=== PATIENT | female | born 1990 | race Caucasian/White ===

== ENCOUNTER 2018-02-20 21:51 | Inpatient (IN) | payer OTHER ==
[2018-02-20] MEDS ORDERED: ePHEDrine 50 MG/ML SDV ONE (22:00)
[2018-02-20] MEDS ORDERED: Bupivacaine 0.25% 10 ML SDV ONE (22:00)
[2018-02-20] MEDS ORDERED: Sodium Chloride 0.9% 10 ML Syringe FLUSH PRN (22:13)
[2018-02-20] MEDS ORDERED: Nalbuphine 20 MG/ML 1 ML Syringe IVPUSH PRN (22:13)
[2018-02-20] MEDS ORDERED: ePHEDrine 50 MG/ML SDV IVPUSH PRN (22:15)
[2018-02-20] MEDS ORDERED: Ondansetron 4 MG/2 ML SDV IVPUSH PRN (22:15)
[2018-02-20] MEDS ORDERED: fentaNYL 100 MCG/2 ML SDV EPIDUR PRN (22:15)
[2018-02-20] MEDS ORDERED: Bupivacaine/fentaNYL/NS 100 ML Bag EPIDUR SCH (22:15)
[2018-02-20] MEDS ORDERED: diphenhydrAMINE 50 MG/ML SDV IVPUSH PRN (22:15)
--- NOTE | 2018-02-20 22:38 | PCM.HP ---
<Laura Carrera L - Last Filed: 02/20/18 22:13> H&P History of Present Illness - General Date of Service: 02/20/18 Admit Problem/Dx: Labor onset Source of Information: Patient, Old Records History Limitations: Reports: No Limitations - History of Present Illness Initial Comments - Free Text/Narative: Jayda is a 27 YO white female who presented today with CC of spontaneous labor onset at 39-5/7 wks gestation. CHRIS by U/S on 09/14/2017 at 13-6 wks gestation. On exam, patient is 4-5 cm dilated, 80% effaced. GBS positive. Blood type O POS. Rubella immune, Tdap given 12/14/17. GC/Chlamydia /RPR/HIB/HBsAg negative. GDM screen normal. 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 Otherwise non-contributory. Onset of Symptoms: Reports: Today, Sudden - Related Data Allergies/Adverse Reactions: Allergies Allergy/AdvReac Type Severity Reaction Status Date / Time No Known Allergies Allergy Verified 09/04/15 10:39 CDT Past Medical History Genitourinary History: Reports: UTI, Recurrent : 2 Para: 1 LMP (Approximate): Psychiatric History: Reports: Depression () Oncologic (Cancer) History: Reports: Other (See Below) (bilateral lumpectomies, benign) H&P Review of Systems - Review of Systems: Review Of Systems: See Below General: Reports: No Symptoms HEENT: Reports: No Symptoms Pulmonary: Reports: No Symptoms Cardiovascular: Reports: No Symptoms Gastrointestinal: Reports: No Symptoms Genitourinary: Reports: No Symptoms Musculoskeletal: Reports: No Symptoms Skin: Reports: No Symptoms Psychiatric: Reports: No Symptoms Neurological: Reports: No Symptoms Hematologic/Lymphatic: Reports: No Symptoms Immunologic: Reports: No Symptoms Exam - Exam Exam: See Below - Vital Signs Weight: 153 lb 1 oz - Exam General: Alert, Oriented, 4 HEENT: Hearing Intact, Mucosa Moist & [place], Pupils Equal Lungs: Clear to Auscultation, Normal Respiratory Effort Cardiovascular: Regular Rate, Regular Rhythm (Female) Exam: Normal External Exam, Normal Bimanual Exam Extremities: Normal Inspection, Normal Range of Motion, Non-Tender, No Pedal Edema, Normal Capillary Refill Skin: Warm, Dry, Intact Neuro Extensive - Mental Status: Alert, Oriented x3, Normal Mood/Affect, Normal Cognition Psychiatric: Alert, Normal Affect, Normal Mood - Problem List (1) 39 weeks gestation of SNOMED Code(s): 33645164 ICD Code: Z3A.39 - 39 WEEKS GESTATION OF Status: Acute Current Visit: Yes (2) GBS carrier SNOMED Code(s): 6870429276125 ICD Code: Z22.330 - CARRIER OF GROUP B STREPTOCOCCUS Status: Acute Current Visit: Yes Problem List Initiated/Reviewed/Updated: Yes Orders Last 24hrs: ASSESSMENT Patient appears to be progressing normally, with good cervical dilation. Giving prophylactic antibiotics for GBS carrier status, using vancomycin d/t extensive allergies. PLAN 1. Continue to monitor labor 2. Patient wishes for epidural for pain management 3. Give Vancomycin IV 4. Plan for <Alban Hensley - Last Filed: 02/21/18 03:05> H&P History of Present Illness - General Admit Problem/Dx: Admission Diagnosis/Problem Admission Diagnosis/Problem Normal labor - History of Present Illness Symptom Onset Date: 02/20/18 Symptom Onset Time: 15:00 Duration of Symptoms: Reports: Hour(s): Location: Reports: Abdomen, Back Improves with: Reports: None Worsens with: Reports: None Associated Symptoms: Reports: No Other Symptoms Exam - Vital Signs Vital Signs: Last Vital Signs Temp 98.6 F 02/20/18 23:20 Pulse 87 02/20/18 23:20 Resp 20 02/20/18 23:20 BP 108/59 L 02/20/18 23:20 Pulse Ox 98 02/20/18 23:20 - Patient Data Lab Results Last 24 hrs: Laboratory Results - last 24 hr 02/20/18 02/20/18 Range/Units 22:15 22:15 WBC 8.22 (3.98-10.04) K/mm3 RBC 4.26 (3.98-5.22) M/mm3 Hgb 12.4 (11.2-15.7) gm/L Hct 37.8 (34.1-44.9) % MCV 88.7 (79.4-94.8) fl MCH 29.1 (25.6-32.2) pg MCHC 32.8 (32.2-35.5) g/dl RDW Std Deviation 43.3 (36.4-46.3) fL Plt Count 177 L (182-369) K/mm3 MPV 10.4 (9.4-12.3) fl Blood Type O POSITIVE Gel Antibody Screen Negative Result Diagrams: 02/20/18 22:15 - Problem List (1) 39 weeks gestation of SNOMED Code(s): 54650840 ICD Code: Z3A.39 - 39 WEEKS GESTATION OF Status: Acute Current Visit: Yes (2) GBS carrier SNOMED Code(s): 3023649603945 ICD Code: Z22.330 - CARRIER OF GROUP B STREPTOCOCCUS Status: Acute Current Visit: Yes Problem List Initiated/Reviewed/Updated: No Orders Last 24hrs: Active Orders 24 hr Category Date Time Status Patient Status [ADT] Routine ADT 02/20/18 22:19 Active Activity as Tolerated [RC] PFP Care 02/20/18 22:19 Active Communication Order [RC] ASDIRECTED Care 02/20/18 22:19 Active Notify Provider [RC] PFP Care 02/20/18 22:19 Active Notify Provider [RC] PRN Care 02/20/18 22:19 Active Peripheral IV Care [RC] . DIRECTED Care 02/20/18 22:19 Active Vital Signs [RC] PER UNIT ROUTINE Care 02/20/18 22:19 Active RAPID PLASMA REAGIN,RPR [CHEM] Routine Lab 02/20/18 22:15 Received Bupivacaine/fentaNYL/NS [fentaNYL/Bupivacaine/NS 2 MCG- Med 02/20/18 22:15 Active 0.125% 100 ML] 100 ml EPIDUR ASDIRECTED Lactated Ringers [Ringers, Lactated] 1,000 ml Med 02/20/18 22:15 Active IV ASDIRECTED Nalbuphine [Nubain] Med 02/20/18 22:13 Active 10 mg IVPUSH Q2H PRN Ondansetron [Zofran] Med 02/20/18 22:15 Active 4 mg IVPUSH ONETIME PRN Oxytocin/Lactated Ringers [Pitocin in LR 20 Units/1,000 Med 02/21/18 01:45 Active ML] 20 unit in 1,000 ml IV ONETIME Sodium Chloride 0.9% [Saline Flush] Med 02/20/18 22:13 Active 10 ml FLUSH ASDIRECTED PRN Vancomycin [Vancocin] 1 gm Med 02/20/18 22:30 Active Sodium Chloride 0.9% [Normal Saline] 250 ml IV Q12H diphenhydrAMINE [Benadryl] Med 02/20/18 22:15 Active 25 mg IVPUSH Q6H PRN ePHEDrine [ePHEDrine Sulfate] Med 02/20/18 22:15 Active 5 mg IVPUSH ASDIRECTED PRN fentaNYL [Sublimaze] Med 02/20/18 22:15 Active 100 mcg EPIDUR Q3H PRN Electronic Heart Tones Ext w TOCO [WOMSER] Oth 02/20/18 22:19 Ordered Routine Electronic Heart Tones Internal [WOMSER] Per Unit Oth 02/20/18 22:19 Ordered Routine Peripheral IV Insertion Adult [OM.PC] Routine Oth 02/20/18 22:19 Ordered Resuscitation Status Routine Resus Stat 02/20/18 22:13 Ordered Medication Orders Diphenhydramine HCl (Benadryl) 25 mg IVPUSH Q6H PRN PRN Reason: Pruritis Ephedrine Sulfate (Ephedrine Sulfate) 5 mg IVPUSH ASDIRECTED PRN PRN Reason: Hypotension Fentanyl (Sublimaze) 100 mcg EPIDUR Q3H PRN PRN Reason: Pain Last Admin: 02/20/18 23:07 Dose: 100 mcg Fentanyl/Bupivacaine HCl (Fentanyl/Bupivacaine/Ns 2 Mcg-0.125% 100 Ml) 100 ml EPIDUR ASDIRECTED [facility] Last Admin: 02/20/18 23:07 Dose: 100 ml Lactated Ringer's (Ringers, Lactated) 1,000 mls @ 100 mls/hr IV ASDIRECTED [facility] Last Admin: 02/20/18 23:26 Dose: 100 mls/hr Infusion: 02/20/18 23:26 Dose: 999 mls/hr Admin: 02/20/18 23:24 Dose: 999 mls/hr Vancomycin HCl 1 gm/ Sodium (Chloride) 250 mls @ 250 mls/hr IV Q12H [facility] Last Admin: 02/20/18 22:50 Dose: 250 mls/hr Oxytocin/Lactated Ringer's (Pitocin In Lr 20 Units/1,000 Ml) 20 unit in 1,000 mls @ 500 mls/hr IV ONETIME ONE Stop: 02/21/18 03:44 Nalbuphine HCl (Nubain) 10 mg IVPUSH Q2H PRN PRN Reason: pain Ondansetron HCl (Zofran) 4 mg IVPUSH ONETIME PRN PRN Reason: Nausea/Vomiting Sodium Chloride (Saline Flush) 10 ml FLUSH ASDIRECTED PRN PRN Reason: Keep Vein Open Assessment/Plan Comment:: Plan delivery Patient seen, examined by me and discussed the student.
--- NOTE | 2018-02-20 23:20 | PCM.PREANE ---
Preanesthetic Assessment - Procedure Proposed Procedure: AMIRA - Anesthesia/Transfusion/Family Hx Anesthesia History: Prior Anesthesia Without Reaction Family History of Anesthesia Reaction: No Transfusion History: No Prior Transfusion(s) - Review of Systems General: No Symptoms Pulmonary: No Symptoms Cardiovascular: No Symptoms Gastrointestinal: Other (GERD with ) Neurological: No Symptoms Other: Reports: None - Physical Assessment NPO Status Date: 02/20/18 NPO Status Time: 17:00 Pulse: 87 O2 Sat by Pulse Oximetry: 98 Respiratory Rate: 20 Blood Pressure: 108/59 Temperature: 37.0 C Height: 1.63 m Weight: 69.428 kg ASA Class: 2 Mental Status: Alert & Oriented x3 Airway Class: Mallampati = 1 Dentition: Reports: Normal Dentition Thyro-Mental Finger Breadths: 3 Mouth Opening Finger Breadths: 3 ROM/Head Extension: Full Lungs: Clear to Auscultation, Normal Respiratory Effort Cardiovascular: Regular Rate, Regular Rhythm - Lab Values: Laboratory Last Values WBC 8.22 K/mm3 (3.98-10.04) 02/20/18 22:15 RBC 4.26 M/mm3 (3.98-5.22) 02/20/18 22:15 Hgb 12.4 gm/L (11.2-15.7) 02/20/18 22:15 Hct 37.8 % (34.1-44.9) 02/20/18 22:15 MCV 88.7 fl (79.4-94.8) 02/20/18 22:15 MCH 29.1 pg (25.6-32.2) 02/20/18 22:15 MCHC 32.8 g/dl (32.2-35.5) 02/20/18 22:15 RDW Std Deviation 43.3 fL (36.4-46.3) 02/20/18 22:15 Plt Count 177 K/mm3 (182-369) L 02/20/18 22:15 MPV 10.4 fl (9.4-12.3) 02/20/18 22:15 - Allergies Allergies/Adverse Reactions: Allergies Allergy/AdvReac Type Severity Reaction Status Date / Time No Known Allergies Allergy Verified 09/04/15 10:39 CDT - Blood Blood Available: No Product(s) Available: None - Anesthesia Plan Pre-Op Medication Ordered: None - Acknowledgements Anesthesia Type Planned: Epidural Pt an Appropriate Candidate for the Planned Anesthesia: Yes Alternatives and Risks of Anesthesia Discussed w Pt/Guardian: Yes Pt/Guardian Understands and Agrees with Anesthesia Plan: Yes PreAnesthesia Questionnaire Genitourinary History: Reports: UTI, Recurrent Psychiatric History: Reports: Depression () Oncologic (Cancer) History: Reports: Other (See Below) (bilateral lumpectomies, benign) - CURRENT (IN HOUSE) MEDS Current Meds: Current Medications Diphenhydramine HCl (Benadryl) 25 mg IVPUSH Q6H PRN PRN Reason: Pruritis Ephedrine Sulfate (Ephedrine Sulfate) 5 mg IVPUSH ASDIRECTED PRN PRN Reason: Hypotension Fentanyl (Sublimaze) 100 mcg EPIDUR Q3H PRN PRN Reason: Pain Last Admin: 02/20/18 23:07 Dose: 100 mcg Fentanyl/Bupivacaine HCl (Fentanyl/Bupivacaine/Ns 2 Mcg-0.125% 100 Ml) 100 ml EPIDUR ASDIRECTED [facility] Last Admin: 02/20/18 23:07 Dose: 100 ml Lactated Ringer's (Ringers, Lactated) 1,000 mls @ 100 mls/hr IV ASDIRECTED [facility] Vancomycin HCl 1 gm/ Sodium (Chloride) 250 mls @ 250 mls/hr IV Q12H [facility] Nalbuphine HCl (Nubain) 10 mg IVPUSH Q2H PRN PRN Reason: pain Ondansetron HCl (Zofran) 4 mg IVPUSH ONETIME PRN PRN Reason: Nausea/Vomiting Sodium Chloride (Saline Flush) 10 ml FLUSH ASDIRECTED PRN PRN Reason: Keep Vein Open
[2018-02-20] MEDS: Lactated Ringers 1,000 ML IV SCH ×2 (23:24→23:26)
[2018-02-21] MEDS ORDERED: Oxytocin/Lactated Ringers 20 UNIT/1,000 ML BAG IV ONE ×2 (01:35→01:45)
--- NOTE | 2018-02-21 03:08 | PCM.DEL ---
L & D Note - General Info Date of Service: 02/21/18 Mother's Due Date: 02/23/18 - Delivery Note Labor: Spontaneous, Augmented by ARM (2155 hrs. on Monday02/20/18.) Delivery Outcome: Livebirth (Male liveborn Monday02/21/18 at 0249 hrs. SOCRATES no nuchal cord but shoulder cord present. Weight pending. Apgars 9.) Infant Delivery Method: Spontaneous Vaginal Delivery-Single Delivery Mode: Spontaneous Presentation: Left Occiput Anterior (SOCRATES) Prep: Povidone-Iodine (Betadine Anesthesia Type: Epidural Amniotic Fluid Description: Clear Episiotomy Type: None Laceration: None Placenta: Intact, Spontaneous (Delivered at 0253 hrs. on Monday02/21/18.) Cord: 3 Vessels Estimated Blood Loss: 250 Resuscitation Needed: No [place]: Suctioned, Bulb Syringe, Stimulated, Warmed, [place] Used, Warmer Used Provider: Alban Hensley Score 1 min: 9 Score 5 min: 9 - General Info Date of Service: 02/21/18 Admission Dx/Problem (Free Text): Admission Diagnosis/Problem Admission Diagnosis/Problem Normal labor Functional Status: Reports: Pain Controlled - Review of Systems General: Reports: No Symptoms HEENT: Reports: No Symptoms Pulmonary: Reports: No Symptoms Cardiovascular: Reports: No Symptoms Gastrointestinal: Reports: No Symptoms Genitourinary: Reports: No Symptoms Musculoskeletal: Reports: No Symptoms Skin: Reports: No Symptoms Neurological: Reports: No Symptoms Psychiatric: Reports: No Symptoms - Patient Data Vitals - Most Recent: Last Vital Signs Temp 98.6 F 02/20/18 23:20 Pulse 87 02/20/18 23:20 Resp 20 02/20/18 23:20 BP 108/59 L 02/20/18 23:20 Pulse Ox 98 02/20/18 23:20 Weight - Most Recent: 153 lb 1 oz Lab Results Last 24 Hours: Laboratory Results - last 24 hr 02/20/18 02/20/18 Range/Units 22:15 22:15 WBC 8.22 (3.98-10.04) K/mm3 RBC 4.26 (3.98-5.22) M/mm3 Hgb 12.4 (11.2-15.7) gm/L Hct 37.8 (34.1-44.9) % MCV 88.7 (79.4-94.8) fl MCH 29.1 (25.6-32.2) pg MCHC 32.8 (32.2-35.5) g/dl RDW Std Deviation 43.3 (36.4-46.3) fL Plt Count 177 L (182-369) K/mm3 MPV 10.4 (9.4-12.3) fl Blood Type O POSITIVE Gel Antibody Screen Negative Med Orders - Current: Current Medications Diphenhydramine HCl (Benadryl) 25 mg IVPUSH Q6H PRN PRN Reason: Pruritis Ephedrine Sulfate (Ephedrine Sulfate) 5 mg IVPUSH ASDIRECTED PRN PRN Reason: Hypotension Fentanyl (Sublimaze) 100 mcg EPIDUR Q3H PRN PRN Reason: Pain Last Admin: 02/20/18 23:07 Dose: 100 mcg Fentanyl/Bupivacaine HCl (Fentanyl/Bupivacaine/Ns 2 Mcg-0.125% 100 Ml) 100 ml EPIDUR ASDIRECTED [facility] Last Admin: 02/20/18 23:07 Dose: 100 ml Lactated Ringer's (Ringers, Lactated) 1,000 mls @ 100 mls/hr IV ASDIRECTED [facility] Last Admin: 02/20/18 23:26 Dose: 100 mls/hr Vancomycin HCl 1 gm/ Sodium (Chloride) 250 mls @ 250 mls/hr IV Q12H [facility] Last Admin: 02/20/18 22:50 Dose: 250 mls/hr Oxytocin/Lactated Ringer's (Pitocin In Lr 20 Units/1,000 Ml) 20 unit in 1,000 mls @ 500 mls/hr IV ONETIME ONE Stop: 02/21/18 03:44 Nalbuphine HCl (Nubain) 10 mg IVPUSH Q2H PRN PRN Reason: pain Ondansetron HCl (Zofran) 4 mg IVPUSH ONETIME PRN PRN Reason: Nausea/Vomiting Sodium Chloride (Saline Flush) 10 ml FLUSH ASDIRECTED PRN PRN Reason: Keep Vein Open - Problem List & Annotations (1) 39 weeks gestation of SNOMED Code(s): 21533948 Code(s): Z3A.39 - 39 WEEKS GESTATION OF Status: Acute Current Visit: Yes (2) GBS carrier SNOMED Code(s): 8067297819903 Code(s): Z22.330 - CARRIER OF GROUP B STREPTOCOCCUS Status: Acute Current Visit: Yes (3) Normal delivery SNOMED Code(s): 85962422, 552455876 Code(s): O80 - ENCOUNTER FOR FULL-TERM UNCOMPLICATED DELIVERY Status: Acute Current Visit: Yes - Problem List Review Problem List Initiated/Reviewed/Updated: No - My Orders Last 24 Hours: My Active Orders 02/20/18 22:13 Nalbuphine [Nubain] 10 mg IVPUSH Q2H PRN Sodium Chloride 0.9% [Saline Flush] 10 ml FLUSH ASDIRECTED PRN Resuscitation Status Routine 02/20/18 22:15 RAPID PLASMA REAGIN,RPR [CHEM] Routine Lactated Ringers [Ringers, Lactated] 1,000 ml IV ASDIRECTED 02/20/18 22:19 Patient Status [ADT] Routine Activity as Tolerated [RC] PFP Communication Order [RC] ASDIRECTED Notify Provider [RC] PFP Notify Provider [RC] PRN Peripheral IV Care [RC] . DIRECTED Vital Signs [RC] PER UNIT ROUTINE Electronic Heart Tones Ext w TOCO [WOMSER] Routine Electronic Heart Tones Internal [WOMSER] Per Unit Routine Peripheral IV Insertion Adult [OM.PC] Routine 02/20/18 22:30 Vancomycin [Vancocin] 1 gm Sodium Chloride 0.9% [Normal Saline] 250 ml IV Q12H 02/21/18 01:45 Oxytocin/Lactated Ringers [Pitocin in LR 20 Units/1,000 ML] 20 unit in 1,000 ml IV ONETIME - Plan Plan:: Plan delivery Patient seen, examined by me and discussed the student.
[2018-02-21] MEDS ORDERED: Docusate Sodium 100 MG Cap PO PRN (03:17)
[2018-02-21] MEDS ORDERED: Lanolin 100% Cream 7 GM Tube TOP PRN (03:17)
[2018-02-21] MEDS ORDERED: Benzocaine/Menthol 20%-0.5% Spray 56 GM Canister TOP PRN (03:17)
[2018-02-21] MEDS ORDERED: Witch Hazel Medicated Pads 100/Jar TOP PRN (03:17)
[2018-02-21] MEDS ORDERED: Acetaminophen 325 MG Tab PO PRN (03:17)
[2018-02-21] MEDS: Ibuprofen 600 MG Tab PO PRN ×4 (03:46→21:26)
--- NOTE | 2018-02-21 08:15 | PCM48HPAN ---
Post Anesthesia Note - EVALUATION WITHIN 48HRS OF ANESTHETIC Vital Signs in Normal Range: Yes Patient Participated in Evaluation: Yes Respiratory Function Stable: Yes Airway Patent: Yes Cardiovascular Function Stable: Yes Hydration Status Stable: Yes Pain Control Satisfactory: Yes Nausea and Vomiting Control Satisfactory: Yes Mental Status Recovered: Yes Pulse Rate: 87 Resp Rate: 20 Temperature: 98.6 F Blood Pressure: 108/59
--- NOTE | 2018-02-21 08:44 | PCM.SN ---
- Free Text/Narrative Note: exam Afebrile, chest clear, uterus at umbilicus -1. No heavy vaginal bleeding. No leg cramping.
[2018-02-22] MEDS: Ibuprofen 600 MG Tab PO PRN (06:25)
--- NOTE | 2018-02-22 08:36 | PCM.DCSUM1 ---
Discharge Summary - Hospital Course Free Text/Narrative:: [facility], [place] LIVE L/D Delivery Note Patient Name: RADHA OCHOA Date of : 86 Patient Status: Inpatient Attending Provider: Alban Hensley Date: 02/21/18 03:06 Initialization Date: 02/21/18 03:06 L & D Note - General Info Date of Service: 02/21/18 Mother's Due Date: 02/23/18 - Delivery Note Labor: Spontaneous, Augmented by ARM (2155 hrs. on Monday02/20/18.) Delivery Outcome: Livebirth (Male liveborn Monday02/21/18 at 0249 hrs. SOCRATES no nuchal cord but shoulder cord present. Weight pending. Apgars 9.) Delivery Method: Spontaneous Vaginal Delivery-Single Delivery Mode: Spontaneous Presentation: Left Occiput Anterior (SOCRATES) Prep: Povidone-Iodine (Betadine Anesthesia Type: Epidural Amniotic Fluid Description: Clear Episiotomy Type: None Laceration: None Placenta: Intact, Spontaneous (Delivered at 0253 hrs. on Monday02/21/18.) Cord: 3 Vessels Estimated Blood Loss: 250 Resuscitation Needed: No : Suctioned, Bulb Syringe, Stimulated, Warmed, Celoron Used, Warmer Used Provider: Alban Hensley Score 1 min: 9 Score 5 min: 9 - General Info Date of Service: 02/21/18 Admission Dx/Problem (Free Text): Admission Diagnosis/Problem Admission Diagnosis/Problem Normal labor Functional Status: Reports: Pain Controlled - Review of Systems General: Reports: No Symptoms HEENT: Reports: No Symptoms Pulmonary: Reports: No Symptoms Cardiovascular: Reports: No Symptoms Gastrointestinal: Reports: No Symptoms Genitourinary: Reports: No Symptoms Musculoskeletal: Reports: No Symptoms Skin: Reports: No Symptoms Neurological: Reports: No Symptoms Psychiatric: Reports: No Symptoms - Patient Data Vitals - Most Recent: Last Vital Signs Temp 98.6 F 02/20/18 23:20 Pulse 87 02/20/18 23:20 Resp 20 02/20/18 23:20 BP 108/59 L 02/20/18 23:20 Pulse Ox 98 02/20/18 23:20 Weight - Most Recent: 153 lb 1 oz Lab Results Last 24 Hours: Laboratory Results - last 24 hr 02/20/18 02/20/18 Range/Units 22:15 22:15 WBC 8.22 (3.98-10.04) K/mm3 RBC 4.26 (3.98-5.22) M/mm3 Hgb 12.4 (11.2-15.7) gm/L Hct 37.8 (34.1-44.9) % MCV 88.7 (79.4-94.8) fl MCH 29.1 (25.6-32.2) pg MCHC 32.8 (32.2-35.5) g/dl RDW Std Deviation 43.3 (36.4-46.3) fL Plt Count 177 L (182-369) K/mm3 MPV 10.4 (9.4-12.3) fl Blood Type O POSITIVE Gel Antibody Screen Negative Med Orders - Current: Current Medications Diphenhydramine HCl (Benadryl) 25 mg IVPUSH Q6H PRN PRN Reason: Pruritis Ephedrine Sulfate (Ephedrine Sulfate) 5 mg IVPUSH ASDIRECTED PRN PRN Reason: Hypotension Fentanyl (Sublimaze) 100 mcg EPIDUR Q3H PRN PRN Reason: Pain Last Admin: 02/20/18 23:07 Dose: 100 mcg Fentanyl/Bupivacaine HCl (Fentanyl/Bupivacaine/Ns 2 Mcg-0.125% 100 Ml) 100 ml EPIDUR ASDIRECTED [facility] Last Admin: 02/20/18 23:07 Dose: 100 ml Lactated Ringer's (Ringers, Lactated) 1,000 mls @ 100 mls/hr IV ASDIRECTED [facility] Last Admin: 02/20/18 23:26 Dose: 100 mls/hr Vancomycin HCl 1 gm/ Sodium (Chloride) 250 mls @ 250 mls/hr IV Q12H [facility] Last Admin: 02/20/18 22:50 Dose: 250 mls/hr Oxytocin/Lactated Ringer's (Pitocin In Lr 20 Units/1,000 Ml) 20 unit in 1,000 mls @ 500 mls/hr IV ONETIME ONE Stop: 02/21/18 03:44 Nalbuphine HCl (Nubain) 10 mg IVPUSH Q2H PRN PRN Reason: pain Ondansetron HCl (Zofran) 4 mg IVPUSH ONETIME PRN PRN Reason: Nausea/Vomiting Sodium Chloride (Saline Flush) 10 ml FLUSH ASDIRECTED PRN PRN Reason: Keep Vein Open - Problem List & Annotations (1) 39 weeks gestation of SNOMED Code(s): 35813044 Code(s): Z3A.39 - 39 WEEKS GESTATION OF Status: Acute Current Visit: Yes (2) GBS carrier SNOMED Code(s): 3067194773755 Code(s): Z22.330 - CARRIER OF GROUP B STREPTOCOCCUS Status: Acute Current Visit: Yes (3) Normal delivery SNOMED Code(s): 23128062, 308040404 Code(s): O80 - ENCOUNTER FOR FULL-TERM UNCOMPLICATED DELIVERY Status: Acute Current Visit: Yes - Problem List Review Problem List Initiated/Reviewed/Updated: No - My Orders Last 24 Hours: My Active Orders 02/20/18 22:13 Nalbuphine [Nubain] 10 mg IVPUSH Q2H PRN Sodium Chloride 0.9% [Saline Flush] 10 ml FLUSH ASDIRECTED PRN Resuscitation Status Routine 02/20/18 22:15 RAPID PLASMA REAGIN,RPR [CHEM] Routine Lactated Ringers [Ringers, Lactated] 1,000 ml IV ASDIRECTED 02/20/18 22:19 Patient Status [ADT] Routine Activity as Tolerated [RC] PFP Communication Order [RC] ASDIRECTED Notify Provider [RC] PFP Notify Provider [RC] PRN Peripheral IV Care [RC] . DIRECTED Vital Signs [RC] PER UNIT ROUTINE Electronic Heart Tones Ext w TOCO [WOMSER] Routine Electronic Heart Tones Internal [WOMSER] Per Unit Routine Peripheral IV Insertion Adult [OM.PC] Routine 02/20/18 22:30 Vancomycin [Vancocin] 1 gm Sodium Chloride 0.9% [Normal Saline] 250 ml IV Q12H 02/21/18 01:45 Oxytocin/Lactated Ringers [Pitocin in LR 20 Units/1,000 ML] 20 unit in 1,000 ml IV ONETIME - Plan Plan:: Plan delivery Patient seen, examined by me and discussed the student. HPI Initial Comments: [facility], [place] LIVE L/D Delivery Note Patient Name: RADHA OCHOA Date of : 86 Patient Status: Inpatient Attending Provider: Alban Hensley Date: 02/21/18 03:06 Initialization Date: 02/21/18 03:06 L & D Note - General Info Date of Service: 02/21/18 Mother's Due Date: 02/23/18 - Delivery Note Labor: Spontaneous, Augmented by ARM (2155 hrs. on Monday02/20/18.) Delivery Outcome: Livebirth (Male liveborn Monday02/21/18 at 0249 hrs. SOCRATES no nuchal cord but shoulder cord present. Weight pending. Apgars 02/04.) Infant Delivery Method: Spontaneous Vaginal Delivery-Single Infant Delivery Mode: Spontaneous Presentation: Left Occiput Anterior (SOCRATES) Prep: Povidone-Iodine (Betadine Anesthesia Type: Epidural Amniotic Fluid Description: Clear Episiotomy Type: None Laceration: None Placenta: Intact, Spontaneous (Delivered at 0253 hrs. on Monday02/21/18.) Cord: 3 Vessels Estimated Blood Loss: 250 Resuscitation Needed: No [place]: Suctioned, Bulb Syringe, Stimulated, Warmed, Celoron Used, Warmer Used Provider: Alban Hensley Score 1 min: 9 Score 5 min: 9 - General Info Date of Service: 02/21/18 Admission Dx/Problem (Free Text): Admission Diagnosis/Problem Admission Diagnosis/Problem Normal labor Functional Status: Reports: Pain Controlled - Review of Systems General: Reports: No Symptoms HEENT: Reports: No Symptoms Pulmonary: Reports: No Symptoms Cardiovascular: Reports: No Symptoms Gastrointestinal: Reports: No Symptoms Genitourinary: Reports: No Symptoms Musculoskeletal: Reports: No Symptoms Skin: Reports: No Symptoms Neurological: Reports: No Symptoms Psychiatric: Reports: No Symptoms - Patient Data Vitals - Most Recent: Last Vital Signs Temp 98.6 F 02/20/18 23:20 Pulse 87 02/20/18 23:20 Resp 20 02/20/18 23:20 BP 108/59 L 02/20/18 23:20 Pulse Ox 98 02/20/18 23:20 Weight - Most Recent: 153 lb 1 oz Lab Results Last 24 Hours: Laboratory Results - last 24 hr 02/20/18 02/20/18 Range/Units 22:15 22:15 WBC 8.22 (3.98-10.04) K/mm3 RBC 4.26 (3.98-5.22) M/mm3 Hgb 12.4 (11.2-15.7) gm/L Hct 37.8 (34.1-44.9) % MCV 88.7 (79.4-94.8) fl MCH 29.1 (25.6-32.2) pg MCHC 32.8 (32.2-35.5) g/dl RDW Std Deviation 43.3 (36.4-46.3) fL Plt Count 177 L (182-369) K/mm3 MPV 10.4 (9.4-12.3) fl Blood Type O POSITIVE Gel Antibody Screen Negative Med Orders - Current: Current Medications Diphenhydramine HCl (Benadryl) 25 mg IVPUSH Q6H PRN PRN Reason: Pruritis Ephedrine Sulfate (Ephedrine Sulfate) 5 mg IVPUSH ASDIRECTED PRN PRN Reason: Hypotension Fentanyl (Sublimaze) 100 mcg EPIDUR Q3H PRN PRN Reason: Pain Last Admin: 02/20/18 23:07 Dose: 100 mcg Fentanyl/Bupivacaine HCl (Fentanyl/Bupivacaine/Ns 2 Mcg-0.125% 100 Ml) 100 ml EPIDUR ASDIRECTED [facility] Last Admin: 02/20/18 23:07 Dose: 100 ml Lactated Ringer's (Ringers, Lactated) 1,000 mls @ 100 mls/hr IV ASDIRECTED [facility] Last Admin: 02/20/18 23:26 Dose: 100 mls/hr Vancomycin HCl 1 gm/ Sodium (Chloride) 250 mls @ 250 mls/hr IV Q12H [facility] Last Admin: 02/20/18 22:50 Dose: 250 mls/hr Oxytocin/Lactated Ringer's (Pitocin In Lr 20 Units/1,000 Ml) 20 unit in 1,000 mls @ 500 mls/hr IV ONETIME ONE Stop: 02/21/18 03:44 Nalbuphine HCl (Nubain) 10 mg IVPUSH Q2H PRN PRN Reason: pain Ondansetron HCl (Zofran) 4 mg IVPUSH ONETIME PRN PRN Reason: Nausea/Vomiting Sodium Chloride (Saline Flush) 10 ml FLUSH ASDIRECTED PRN PRN Reason: Keep Vein Open - Problem List & Annotations (1) 39 weeks gestation of SNOMED Code(s): 93974614 Code(s): Z3A.39 - 39 WEEKS GESTATION OF Status: Acute Current Visit: Yes (2) GBS carrier SNOMED Code(s): 7396937049650 Code(s): Z22.330 - CARRIER OF GROUP B STREPTOCOCCUS Status: Acute Current Visit: Yes (3) Normal delivery SNOMED Code(s): 13969914, 309293001 Code(s): O80 - ENCOUNTER FOR FULL-TERM UNCOMPLICATED DELIVERY Status: Acute Current Visit: Yes - Problem List Review Problem List Initiated/Reviewed/Updated: No - My Orders Last 24 Hours: My Active Orders 02/20/18 22:13 Nalbuphine [Nubain] 10 mg IVPUSH Q2H PRN Sodium Chloride 0.9% [Saline Flush] 10 ml FLUSH ASDIRECTED PRN Resuscitation Status Routine 02/20/18 22:15 RAPID PLASMA REAGIN,RPR [CHEM] Routine Lactated Ringers [Ringers, Lactated] 1,000 ml IV ASDIRECTED 02/20/18 22:19 Patient Status [ADT] Routine Activity as Tolerated [RC] PFP Communication Order [RC] ASDIRECTED Notify Provider [RC] PFP Notify Provider [RC] PRN Peripheral IV Care [RC] . DIRECTED Vital Signs [RC] PER UNIT ROUTINE Electronic Heart Tones Ext w TOCO [WOMSER] Routine Electronic Heart Tones Internal [WOMSER] Per Unit Routine Peripheral IV Insertion Adult [OM.PC] Routine 02/20/18 22:30 Vancomycin [Vancocin] 1 gm Sodium Chloride 0.9% [Normal Saline] 250 ml IV Q12H 02/21/18 01:45 Oxytocin/Lactated Ringers [Pitocin in LR 20 Units/1,000 ML] 20 unit in 1,000 ml IV ONETIME - Plan Plan:: Plan delivery Patient seen, examined by me and discussed the student. Brief History: [facility], [place] LIVE . L[facility]D [facility]. [id number] Date of : Patient Status: Inpatient. Attending Provider: Alban Hensleyount Number: [id number]. Date: 02/21/18 03:06Initialization Date: 02/21/18 03:06. L & D Note. - General Info. Date of Service: 02/21/18. Mother's Due Date: 02/23/18. - Delivery Note. Labor: Spontaneous, Augmented by ARM (2155 hrs. on Monday02/20/18.). Delivery Outcome: Livebirth (Male liveborn Monday at 0249 hrs. SOCRATES no nuchal cord but shoulder cord present. Weight pending. Apgars 9.). Delivery Method: Spontaneous Vaginal Delivery-Single. Delivery Mode: Spontaneous. Presentation: Left Occiput Anterior ( SOCRATES). Prep: Povidone-Iodine (Betadine. Anesthesia Type: Epidural. Amniotic Fluid Description: Clear. Episiotomy Type: None. Laceration: None. Placenta: Intact, Spontaneous (Delivered at 0253 hrs. on Monday02/21/18.). Cord: 3 Vessels. Estimated Blood Loss: 250. Resuscitation Needed: No. : Suctioned, Bulb Syringe, Stimulated, Warmed, Celoron Used, Warmer Used. Provider: Alban Hensley. Score 1 min: 9. Score 5 min : 9. - General Info. Date of Service: 02/21/18. Admission Dx/Problem (Free Text): Admission Diagnosis/Problem. Admission Diagnosis/Problem Normal labor. Functional Status: Reports: Pain Controlled. - Review of Systems. General: Reports: No Symptoms. HEENT: Reports: No Symptoms. Pulmonary: Reports : No Symptoms. Cardiovascular: Reports: No Symptoms. Gastrointestinal: Reports : No Symptoms. Genitourinary: Reports: No Symptoms. Musculoskeletal: Reports: No Symptoms. Skin: Reports: No Symptoms. Neurological: Reports: No Symptoms. Psychiatric: Reports: No Symptoms. - Patient Data. Vitals - Most Recent: Last Vital Signs. Temp 98.6 F 02/20/18 23:20. Pulse 87 02/20/18 23:20. Resp 20 02/20/18 23:20. BP 108/59 L 02/20/18 23:20. Pulse Ox 98 02/20/18 23: 20. Weight - Most Recent: 153 lb 1 oz. Lab Results Last 24 Hours: Laboratory Results - last 24 hr. 02/20/1809Range/Units. 22:1522:15. WBC 8.22 (3.98 -10.04) K/mm3. RBC 4.26 (3.98-5.22) M/mm3. Hgb 12.4 (11.2-15.7) gm/L. Hct 37.8 (34.1-44.9) %. MCV 88.7 (79.4-94.8) fl. MCH 29.1 (25.6-32.2) pg. MCHC 32.8 (32.2-35.5) g/dl. RDW Std Deviation 43.3 (36.4-46.3) fL. Plt Count 177 L (182-369) K/mm3. MPV 10.4 (9.4-12.3) fl. Blood Type O POSITIVE. Gel Antibody Screen Negative. Med Orders - Current: Current Medications. Diphenhydramine HCl (Benadryl) 25 mg IVPUSH Q6H PRN. PRN Reason: Pruritis. Ephedrine Sulfate (Ephedrine Sulfate) 5 mg IVPUSH ASDIRECTED PRN. PRN Reason: Hypotension. Fentanyl (Sublimaze) 100 mcg EPIDUR Q3H PRN. PRN Reason: Pain. Last Admin: 02/20/18 23:07 Dose: 100 mcg. Fentanyl/Bupivacaine HCl (Fentanyl/ Bupivacaine/Ns 2 Mcg-0.125% 100 Ml) 100 ml EPIDUR ASDIRECTED [facility]. Last Admin: 02/20/18 23:07 Dose: 100 ml. Lactated Ringer's (Ringers, Lactated) 1,000 mls @ 100 mls/hr IV ASDIRECTED [facility]. Last Admin: 02/20/18 23:26 Dose: 100 mls/hr. Vancomycin HCl 1 gm/ Sodium (Chloride) 250 mls @ 250 mls/hr IV Q12H [facility]. Last Admin: 02/20/18 22:50 Dose: 250 mls/hr. Oxytocin/Lactated Ringer's (Pitocin In Lr 20 Units/1,000 Ml) 20 unit in 1,000 mls @ 500 mls/hr IV ONETIME ONE. Stop: 02/21/18 03:44. Nalbuphine HCl (Nubain) 10 mg IVPUSH Q2H PRN. PRN Reason: pain. Ondansetron HCl (Zofran) 4 mg IVPUSH ONETIME PRN. PRN Reason: Nausea/Vomiting. Sodium Chloride (Saline Flush) 10 ml FLUSH ASDIRECTED PRN. PRN Reason: Keep Vein Open. - Problem List & Annotations. (1) 39 weeks gestation of . SNOMED Code(s): 07287695. Code(s): Z3A.39 - 39 WEEKS GESTATION OF Status: Acute Current Visit: Yes. (2) GBS carrier. SNOMED Code(s): 3079589810724. Code(s): Z22.330 - CARRIER OF GROUP B STREPTOCOCCUS Status: Acute Current Visit: Yes. (3) Normal delivery. SNOMED Code(s): 38611317, 904088312. Code(s): O80 - ENCOUNTER FOR FULL-TERM UNCOMPLICATED DELIVERY Status: Acute Current Visit: Yes. - Problem List Review. Problem List Initiated/Reviewed/Updated: No. - My Orders. Last 24 Hours: My Active Orders. 02/20/18 22:13. Nalbuphine [Nubain] 10 mg IVPUSH Q2H PRN. Sodium Chloride 0.9% [Saline Flush] 10 ml FLUSH ASDIRECTED PRN. Resuscitation Status Routine. 02/20/18 22:15. RAPID PLASMA REAGIN,RPR [CHEM] Routine. Lactated Ringers [Ringers, Lactated] 1,000 ml IV ASDIRECTED. 22:19. Patient Status [ADT] Routine. Activity as Tolerated [RC] PFP. Communication Order [RC] ASDIRECTED. Notify Provider [RC] PFP. Notify Provider [RC] PRN. Peripheral IV Care [RC] . DIRECTED. Vital Signs [RC] PER UNIT ROUTINE. Electronic Heart Tones Ext w TOCO [WOMSER] Routine. Electronic Heart Tones Internal [WOMSER] Per Unit Routine. Peripheral IV Insertion Adult [OM.PC] Routine. 02/20/18 22:30. Vancomycin [Vancocin] 1 gm Sodium Chloride 0.9% [Normal Saline] 250 ml IV Q12H. 02/21/18 01:45. Oxytocin/ Lactated Ringers [Pitocin in LR 20 Units/1,000 ML] 20 unit in 1,000 ml IV ONETIME. - Plan. Plan:: Plan delivery. Patient seen, examined by me and discussed the student. Diagnosis: Stroke: No - Discharge Data Discharge Date: 02/22/18 Discharge Disposition: Home, Self-Care 01 Condition: Good - Discharge Diagnosis/Problem(s) (1) 39 weeks gestation of SNOMED Code(s): 02088610 ICD Code: Z3A.39 - 39 WEEKS GESTATION OF Status: Acute Current Visit: Yes (2) GBS carrier SNOMED Code(s): 2423013780953 ICD Code: Z22.330 - CARRIER OF GROUP B STREPTOCOCCUS Status: Acute Current Visit: Yes (3) Normal delivery SNOMED Code(s): 51051280, 397769465 ICD Code: O80 - ENCOUNTER FOR FULL-TERM UNCOMPLICATED DELIVERY Status: Acute Current Visit: Yes (4) Depression affecting , SNOMED Code(s): 30476631 ICD Code: O99.345 - OTHER MENTAL DISORDERS COMPLICATING THE PUERPERIUM; F32.9 - MAJOR DEPRESSIVE DISORDER, SINGLE EPISODE, UNSPECIFIED Status: Acute Current Visit: Yes - Patient Summary/Data Complications: None Consults: None Hospital Course: Uneventful - Patient Instructions Diet: Usual Diet as Tolerated Driving: Do Not Drive (48 hours) Showering/Bathing: May Shower Notify Provider of: Fever, Increased Pain, Swelling and Redness, Drainage, Nausea and/or Vomiting - Discharge Plan *PRESCRIPTION DRUG MONITORING PROGRAM REVIEWED*: No *COPY OF PRESCRIPTION DRUG MONITORING REPORT IN PATIENT ALEXI: No Prescriptions/Med Rec: Escitalopram [Lexapro] 10 mg PO DAILY #30 tab Home Medications: Home Meds Acetaminophen [Tylenol] 650 mg PO Q4H PRN tablet 02/22/18 [Rx] Benzocaine/Menthol [Dermoplast Pain Relief [place]] 1 spray TOP ASDIRECTED PRN canister 02/22/18 [Rx] Docusate Sodium [Colace] 100 mg PO BID PRN cap 02/22/18 [Rx] Escitalopram [Lexapro] 10 mg PO DAILY #30 tab 02/22/18 [Rx] Ibuprofen [Motrin] 600 mg PO Q4H PRN tablet 02/22/18 [Rx] Lanolin [Lansinoh HPA] 1 applic TOP ASDIRECTED PRN tube 02/22/18 [Rx] Witch Diana [Tucks] 1 pad TOP ASDIRECTED PRN pad 02/22/18 [Rx] Referrals: Alban Hensley MD [Primary Care Provider] - (I'll make appointment to see me on 03/06/18) - Discharge Summary/Plan Comment DC Time >30 min.: No - Patient Data Vitals - Most Recent: Last Vital Signs Temp 97.5 F 02/21/18 20:06 Pulse 90 02/21/18 20:06 Resp 16 02/21/18 20:06 BP 108/58 L 02/21/18 20:06 Pulse Ox 99 02/21/18 20:06 Weight - Most Recent: 153 lb 1 oz I&O - Last 24 hours: Intake & Output 02/21/18 02/22/18 02/22/18 22:59 06:59 14:59 Intake Total 120 Balance 120 Lab Results - Last 24 hrs: Laboratory Results - last 24 hr 02/20/18 Range/Units 22:15 RPR Non-reactive (NONREACTIVE) Med Orders - Current: Current Medications Acetaminophen (Tylenol) 650 mg PO Q4H PRN PRN Reason: mild pain or fever Benzocaine/Menthol (Dermoplast Pain Relief [place]) 0 gm TOP ASDIRECTED PRN PRN Reason: Perineal Comfort Measure Docusate Sodium (Colace) 100 mg PO BID PRN PRN Reason: Constipation Emollient Ointment (Lansinoh Hpa) 0 gm TOP ASDIRECTED PRN PRN Reason: Sore Nipples Ibuprofen (Motrin) 600 mg PO Q4H PRN PRN Reason: Mild pain or fever Last Admin: 02/22/18 06:25 Dose: 600 mg Witch Diana (Tucks) 1 pad TOP ASDIRECTED PRN PRN Reason: Hemorrhoid pain Discontinued Medications Bupivacaine HCl (Sensorcaine-Mpf 0.25%) 10 ml .ROUTE .STK-MED ONE Stop: 02/20/18 22:01 Diphenhydramine HCl (Benadryl) 25 mg IVPUSH Q6H PRN PRN Reason: Pruritis Ephedrine Sulfate (Ephedrine Sulfate) 5 mg IVPUSH ASDIRECTED PRN PRN Reason: Hypotension Ephedrine Sulfate (Ephedrine Sulfate) 50 mg .ROUTE .STK-MED ONE Stop: 02/20/18 22:01 Fentanyl (Sublimaze) 100 mcg EPIDUR Q3H PRN PRN Reason: Pain Last Admin: 02/20/18 23:07 Dose: 100 mcg Fentanyl/Bupivacaine HCl (Fentanyl/Bupivacaine/Ns 2 Mcg-0.125% 100 Ml) 100 ml EPIDUR ASDIRECTED [facility] Last Admin: 02/20/18 23:07 Dose: 100 ml Lactated Ringer's (Ringers, Lactated) 1,000 mls @ 100 mls/hr IV ASDIRECTED [facility] Last Admin: 02/20/18 23:26 Dose: 100 mls/hr Vancomycin HCl 1 gm/ Sodium (Chloride) 250 mls @ 250 mls/hr IV Q12H [facility] Last Admin: 02/20/18 22:50 Dose: 250 mls/hr Oxytocin/Lactated Ringer's (Pitocin In Lr 20 Units/1,000 Ml) 20 unit in 1,000 mls @ 500 mls/hr IV ONETIME ONE Stop: 02/21/18 03:44 Last Admin: 02/21/18 03:59 Dose: 500 mls/hr Nalbuphine HCl (Nubain) 10 mg IVPUSH Q2H PRN PRN Reason: pain Ondansetron HCl (Zofran) 4 mg IVPUSH ONETIME PRN PRN Reason: Nausea/Vomiting Sodium Chloride (Saline Flush) 10 ml FLUSH ASDIRECTED PRN PRN Reason: Keep Vein Open
[2018-02-22 10:33] VITALS: BP 107/70
== END 2018-02-22 10:05 | disposition home or self-care (01) | DRG 775 ==
LOC: JD.OBCHECK 21:51 → JD.OB 21:57 → JD.OBCHECK 22:23 → JD.OB 22:24 → OBSVTOIN 02-21 02:49 → JD.OB 02-21 02:50
PROVIDERS: ADMIT Obstetrics & Gynecology; ATTEND Obstetrics & Gynecology
PROC: 10907ZC Drainage of Amniotic Fluid, Therapeutic from Products of Conception, Via Natural or Artificial Opening (ICD-10-PCS; principal; 2018-02-21)
PROC: 10E0XZZ Delivery of Products of Conception, External Approach (ICD-10-PCS; principal; 2018-02-21)
PROC: 00HU33Z Insertion of Infusion Device into Spinal Canal, Percutaneous Approach (ICD-10-PCS; 2018-02-21)
PROC: 3E0R3BZ Introduction of Anesthetic Agent into Spinal Canal, Percutaneous Approach (ICD-10-PCS; 2018-02-21)
DX: O99.824 Streptococcus B carrier state complicating childbirth (principal); O69.82X0 Labor and delivery complicated by other cord entanglement, without compression, not applicable or unspecified; Z3A.39 39 weeks gestation of pregnancy; Z37.0 Single live birth; O99.345 Other mental disorders complicating the puerperium; F32.9 Major depressive disorder, single episode, unspecified; Z87.440 Personal history of urinary (tract) infections; Z88.1 Allergy status to other antibiotic agents; Z88.0 Allergy status to penicillin
CPT/HCPCS: 36415; 51701; 59025; 59409; 85025; 85027; 86592; 86850; 86900; 86901; A9270-GY; J2590; J3010; J3370; J3490; J7050; J7120

== ENCOUNTER 2019-04-23 12:10 | Day surgery (SDC) | payer BC, OTHER ==
[~2019-04-23 12:10] MED LIST: Clindamycin Phosphate in D5W 900 MG in Premix Bag 1 BAG IV ONE; Lactated Ringers 1,000 ML IV SCH; Lidocaine 1%/Sod Bicarbonate in NS 8.4% 1 ML Syringe IDERM PRN; Sodium Chloride 0.9% 10 ML Syringe FLUSH PRN
--- NOTE | 2019-04-23 12:46 | PCM.PREANE ---
Preanesthetic Assessment - Anesthesia/Transfusion/Family Hx Anesthesia History: Prior Anesthesia Without Reaction Transfusion History: No Prior Transfusion(s) - Review of Systems General: No Symptoms Pulmonary: No Symptoms Cardiovascular: No Symptoms Gastrointestinal: No Symptoms Neurological: No Symptoms Other: Reports: None - Physical Assessment NPO Status Date: 04/22/19 NPO Status Time: 21:30 Vital Signs: Last Vital Signs Temp 98.8 F 04/23/19 12:20 Pulse 72 04/23/19 12:20 Resp 16 04/23/19 12:20 BP 115/71 04/23/19 12:20 Pulse Ox 100 04/23/19 12:20 Height: 1.63 m Weight: 56.245 kg ASA Class: 1 Mental Status: Alert & Oriented x3 Airway Class: Mallampati = 1 Dentition: Reports: Normal Dentition Thyro-Mental Finger Breadths: 3 Mouth Opening Finger Breadths: 3 ROM/Head Extension: Full Lungs: Clear to Auscultation, Normal Respiratory Effort Cardiovascular: Regular Rate, Regular Rhythm - Lab Values: Laboratory Last Values Urine HCG, Qual Negative (NEGATIVE) 04/23/19 12:18 - Allergies Allergies/Adverse Reactions: Allergies Allergy/AdvReac Type Severity Reaction Status Date / Time azithromycin Allergy Rash Verified 04/22/19 13:59 aztreonam [From Azactam] Allergy Numbness Verified 04/22/19 13:59 cefprozil [From Cefzil] Allergy Rash Verified 04/22/19 13:59 ciprofloxacin [From Cipro] Allergy Numbness Verified 04/22/19 13:59 Penicillins Allergy Rash Verified 04/22/19 13:59 - Acknowledgements Anesthesia Type Planned: General Anesthesia Pt an Appropriate Candidate for the Planned Anesthesia: Yes Alternatives and Risks of Anesthesia Discussed w Pt/Guardian: Yes Pt/Guardian Understands and Agrees with Anesthesia Plan: Yes PreAnesthesia Questionnaire - Past Health History Medical/Surgical History: Denies Medical/Surgical History HEENT History: Reports: Impaired Vision Cardiovascular History: Reports: None Genitourinary History: Reports: UTI, Recurrent, Other (See Below) Other Genitourinary History: breast lump, dysmenorrhea, breast lumpectomy x2 BULB PACKER History: Reports: Psychiatric History: Reports: Depression Hematologic History: Reports: Anemia Other Hematologic History: Anemic during pregnacy Oncologic (Cancer) History: Reports: None, Other (See Below) - Past Surgical History Head Surgeries/Procedures: Reports: None Cardiovascular Surgical History: Reports: None Respiratory Surgical History: Reports: None GI Surgical History: Reports: None Endocrine Surgical History: Reports: None Neurological Surgical History: Reports: None Musculoskeletal Surgical History: Reports: None Oncologic Surgical History: Reports: None Dermatological Surgical History: Reports: None - SUBSTANCE USE Smoking Status *Q: Never Smoker Recreational Drug Use History: No - HOME MEDS Home Medications: Home Meds Norethindrone-E.estradiol-Iron [Naif Fe 1-20 Tablet] 1 tab PO DAILY 04/22/19 [ History] - CURRENT (IN HOUSE) MEDS Current Meds: Current Medications Lactated Ringer's (Ringers, Lactated) 1,000 mls @ 125 mls/hr IV ASDIRECTED [facility] Stop: 04/23/19 23:00 Lidocaine/Sodium Bicarbonate (Buffered Lidocaine 1% In Ns 8.4%) 0.25 ml IDERM ONETIME PRN PRN Reason: Prior to IV Start Stop: 04/23/19 23:00 Sodium Chloride (Saline Flush) 10 ml FLUSH ASDIRECTED PRN PRN Reason: Keep Vein Open Stop: 04/23/19 23:00 Discontinued Medications Clindamycin Phosphate 900 mg/ (Premix) 50 mls @ 94.34 mls/hr IV ONETIME ONE Stop: 04/23/19 09:59
[2019-04-23] MEDS ORDERED: Propofol 200 MG/20 ML SDV ONE ×3 (13:38→15:12)
[2019-04-23] MEDS ORDERED: Midazolam 1 MG/ML 2 ML SDV ONE (13:39)
[2019-04-23] MEDS ORDERED: fentaNYL 100 MCG/2 ML SDV ONE (13:39)
[2019-04-23] MEDS ORDERED: Ondansetron 4 MG/2 ML SDV ONE (13:40)
[2019-04-23] MEDS ORDERED: Lidocaine 1% 4 ML ONE (13:40)
[2019-04-23] MEDS ORDERED: Ketamine 500 mg/10 ML MDV ONE (14:16)
[2019-04-23] MEDS: Bupivacaine 0.5%/EPINEPHrine 1:200,000 50 ML MDV ONE ×2 (14:25→14:31)
[2019-04-23] MEDS ORDERED: Lactated Ringers 1,000 ML ONE (14:29)
--- NOTE | 2019-04-23 15:51 | PCM.POSTAN ---
POST ANESTHESIA ASSESSMENT - MENTAL STATUS Mental Status: Somnolent - VITAL SIGNS Vital Signs: Last Vital Signs Temp 98.8 F 04/23/19 12:20 Pulse 72 04/23/19 12:20 Resp 16 04/23/19 12:20 BP 115/71 04/23/19 12:20 Pulse Ox 100 04/23/19 12:20 Postprocedure: 103/68, HR 80, RR 14, T 97.1F, SpO2 100% - RESPIRATORY Respiratory Status: Respiratory Rate WNL, Airway Patent, O2 Saturation Stable, Supplemental Oxygen - CARDIOVASCULAR CV Status: Pulse Rate WNL - GASTROINTESTINAL GI Status: No Symptoms - PAIN Pain Score: 0 - POST OP HYDRATION Hydration Status: Adequate & Stable
--- NOTE | 2019-04-23 15:53 | PCM.PRNOTE ---
- Free Text/Narrative Note: Date: 04/23/2019 Surgeon: Kelvin Machado MD Procedure: excisional biopsy, left breast Findings: indiscreet mass of left breast, difficult to appreciate. Most obvious palpable lass within old fibrous tissue near site of prior excision. A 3 x 3 x 2 cm mass of avascular fibrous tissue was excised. Detailed report: Patient was brought to the operating room and underwent deep sedation monitored by anesthesia. She was placed supine, and the left chest was prepped and draped in sterile fashion. Half percent Marcaine with epinephrine was injected at the site, 10 cc intradermally along the prior incision, as well as 20 cc in the dermal plane extending towards the upper outer quadrant of the breast. Curvilinear incision was made along the edge of the areola, in line with the prior surgical incision. Skin flaps were raised, exposing fibrous avascular tissue. It was difficult to discern any one discrete mass in the breast. Is felt to most likely be the lesion of concern was contained within a mass of fibrous tissue in the upper portion of the breast. This area was grasped with clamps, and electrocautery was used to remove a disc shaped, 3 x 3 x 2 cm wad of fibrous tissue. After excision, the underlying breast tissue felt uniform throughout. Satisfactory. The deep dermal layer was closed with interrupted 3- 0 Vicryl, and a running 4-0 Vicryl stitch was placed in the subcuticular plane. Dermabond was applied. The patient tolerated the procedure well. Kelvin Machado MD General Surgery
--- NOTE | 2019-04-23 16:13 | PCM48HPAN ---
Post Anesthesia Note - EVALUATION WITHIN 48HRS OF ANESTHETIC Vital Signs in Normal Range: Yes Patient Participated in Evaluation: Yes Respiratory Function Stable: Yes Airway Patent: Yes Cardiovascular Function Stable: Yes Hydration Status Stable: Yes Pain Control Satisfactory: Yes Nausea and Vomiting Control Satisfactory: Yes Mental Status Recovered: Yes Vital Signs: Last Vital Signs Temp 37.1 C 04/23/19 12:20 Pulse 72 04/23/19 12:20 Resp 16 04/23/19 12:20 BP 115/71 04/23/19 12:20 Pulse Ox 100 04/23/19 12:20 - COMMENTS/OBSERVATIONS Free Text/Narrative:: no anesthesia complications noted
[2019-04-23 20:22] VITALS: BP 110/66; PULSE 73
== END 2019-04-23 19:59 | disposition home or self-care (01) ==
LOC: JD.MS 12:10 → JD.SDS 12:10
PROVIDERS: ATTEND Surgery
DX: N63.20 Unspecified lump in the left breast, unspecified quadrant (principal); Z88.0 Allergy status to penicillin; Z88.1 Allergy status to other antibiotic agents
CPT/HCPCS: 19120; 81025; J2001; J2250; J2405; J2704; J3010; J3490; J7120; 00400